=== PATIENT | male | born 1950 | race Two or more races ===

== ENCOUNTER 2020-01-18 17:41 | Inpatient (IN) | payer MEDICARE, MEDICAID ==
[~2020-01-18] VITALS: Ht 165.1 cm; Wt 101.6 kg
[2020-01-18] MEDS ORDERED: SODIUM CHLORIDE 0.9% 500 ML IV ONE (18:23)
[2020-01-18] MEDS ORDERED: PANTOPRAZOLE 80 MG in SODIUM CHLORIDE 0.9% 100 ML IV STA (18:23)
[2020-01-18] MEDS ORDERED: PANTOPRAZOLE SODIUM 40 MG/VIAL IV STA (18:23)
[2020-01-18 18:53] LABS: BASOPHILS % 0.2 % (0.0-2.0); EOSINOPHILS % 0.2 % (0.0-5.0); HEMATOCRIT. 31.5 % (42.0-52.0); HEMOGLOBIN. 10.8 g/dL (14.0-18.0); LYMPHOCYTES % 11.3 % (20.0-50.0); MEAN CORPUSCULAR HEMOGLOBIN 31.6 pg (28.0-32.0); MEAN CORPUSCULAR VOLUME 92.7 fL (80.0-94.0); MEAN PLATELET VOLUME 10.7 fl (7.4-10.4); MONOCYTES % 4.8 % (2.0-8.0); NEUTROPHILS % 83.5 % (40.0-76.0); PLATELET 124 x1000/uL (130-400); RED CELL DISTRIBUTION WIDTH 13.6 % (11.6-14.6)
[2020-01-18 18:58] LABS: CHLORIDE 99 mEq/L (98-107)
[2020-01-18 19:00] LABS: INR 1.1; PROTHROMBIN TIME 11.8 sec (9.6-11.0)
[2020-01-18 21:15] LABS: BASOPHILS % 0.2 % (0.0-2.0); EOSINOPHILS % 0.2 % (0.0-5.0); HEMATOCRIT. 27.5 % (42.0-52.0); HEMOGLOBIN. 9.3 g/dL (14.0-18.0); LYMPHOCYTES % 14.9 % (20.0-50.0); MEAN CORPUSCULAR HEMOGLOBIN 31.6 pg (28.0-32.0); MEAN CORPUSCULAR VOLUME 93.5 fL (80.0-94.0); MEAN PLATELET VOLUME 10.7 fl (7.4-10.4); MONOCYTES % 7.4 % (2.0-8.0); NEUTROPHILS % 77.3 % (40.0-76.0); PLATELET 92 x1000/uL (130-400); RED BLOOD CELL COUNT 2.94 mill/uL (4.7-6.1); RED CELL DISTRIBUTION WIDTH 13.6 % (11.6-14.6)
[2020-01-19] MEDS ORDERED: ACETAMINOPHEN 325MG TABLET PO PRN (08:45)
[2020-01-19] MEDS ORDERED: DEXTROSE 50% WATER 50ML SYRINGE IV PRN (08:45)
[2020-01-19] MEDS ORDERED: ONDANSETRON HCL 4MG/2ML INJ IV PRN (08:45)
[2020-01-19] MEDS: PANTOPRAZOLE SODIUM 40 MG/VIAL IV SCH ×2 (09:00→17:14)
[2020-01-19] MEDS: BLOOD SUGAR DIAGNOSTIC STRIP TEST SCH ×3 (11:44→19:51)
[2020-01-19] MEDS: INSULIN LISPRO 100 UNITS/ML SUBCUT SCH ×3 (12:00→21:00)
[2020-01-19 14:45] VITALS: BP 122/72
[2020-01-19 16:00] VITALS: BP 120/76
[2020-01-19] MEDS ORDERED: ATOR20TA65 PO (16:36)
[2020-01-19] MEDS ORDERED: PANT20TA3 MT (16:36)
[2020-01-19] MEDS ORDERED: NEPVIT MT (16:36)
[2020-01-19] MEDS ORDERED: MIDO10TA PO (16:36)
[2020-01-19] MEDS ORDERED: CINA30 PO (16:36)
[2020-01-19] MEDS ORDERED: SEVE800T8 PO (16:36)
[2020-01-19] MEDS ORDERED: IRBE150T51 PO (16:36)
[2020-01-19] MEDS ORDERED: NIFE-33 PO (16:36)
[2020-01-19] MEDS: DOCUSATE SODIUM 250MG CAPSULE PO SCH (17:14)
[2020-01-19 18:26] LABS: HEMATOCRIT 30.9 % (42.0-52.0); HEMOGLOBIN 10.6 g/dL (14.0-18.0)
[2020-01-19 18:40] LABS: TOTAL IRON BINDING CAPACITY 265 ug/dL (250-450)
[2020-01-19 20:00] VITALS: BP 100/80
[2020-01-20] VITALS (9 sets, daily range): BP systolic 89–120; BP diastolic 41–76
[2020-01-20 01:05] LABS: HEMATOCRIT 25.9 % (42.0-52.0); HEMOGLOBIN 8.9 g/dL (14.0-18.0)
[2020-01-20] MEDS: BLOOD SUGAR DIAGNOSTIC STRIP TEST SCH ×4 (06:34→20:32)
[2020-01-20] MEDS: INSULIN LISPRO 100 UNITS/ML SUBCUT SCH ×4 (06:50→20:38)
[2020-01-20] MEDS: PANTOPRAZOLE SODIUM 40 MG/VIAL IV SCH ×2 (08:13→17:50)
[2020-01-20] MEDS: DOCUSATE SODIUM 250MG CAPSULE PO SCH ×2 (08:14→17:50)
[2020-01-20 08:36] LABS: BASOPHILS % 0.5 % (0.0-2.0); HEMATOCRIT. 29.8 % (42.0-52.0); HEMOGLOBIN. 10.2 g/dL (14.0-18.0); LYMPHOCYTES % 31.2 % (20.0-50.0); MEAN CORPUSCULAR HEMOGLOBIN 31.9 pg (28.0-32.0); MEAN CORPUSCULAR VOLUME 93.2 fL (80.0-94.0); MEAN PLATELET VOLUME 10.5 fl (7.4-10.4); MONOCYTES % 5.9 % (2.0-8.0); NEUTROPHILS % 61.4 % (40.0-76.0); PLATELET 111 x1000/uL (130-400); RED CELL DISTRIBUTION WIDTH 13.6 % (11.6-14.6)
[2020-01-20] MEDS ORDERED: EPOETIN ALFA 10000UNITS/ML VIAL SUBCUT SCH (21:00)
[2020-01-21] VITALS (7 sets, daily range): BP systolic 94–129; BP diastolic 34–74
[2020-01-21] MEDS: BLOOD SUGAR DIAGNOSTIC STRIP TEST SCH ×2 (06:31→12:45)
[2020-01-21] MEDS: INSULIN LISPRO 100 UNITS/ML SUBCUT SCH ×2 (07:22→12:46)
[2020-01-21] MEDS: PANTOPRAZOLE SODIUM 40 MG/VIAL IV SCH (08:21)
[2020-01-21] MEDS: DOCUSATE SODIUM 250MG CAPSULE PO SCH (08:21)
== END 2020-01-21 15:43 | disposition home or self-care (01) | DRG 377 ==
LOC: ER 17:41 → MICUSO 20:35 → EDBEDREQ 20:42 → 6WST 01-19 15:17
PROVIDERS: ADMIT Internal Medicine; ATTEND Internal Medicine
PROC: 5A1D70Z Performance of Urinary Filtration, Intermittent, Less than 6 Hours Per Day (ICD-10-PCS; principal; 2020-01-20)
DX: K92.1 Melena (principal); N18.6 End stage renal disease; D62 Acute posthemorrhagic anemia; E44.1 Mild protein-calorie malnutrition; E87.2 Acidosis; I12.0 Hypertensive chronic kidney disease with stage 5 chronic kidney disease or end stage renal disease; R57.9 Shock, unspecified; E11.22 Type 2 diabetes mellitus with diabetic chronic kidney disease; E66.01 Morbid (severe) obesity due to excess calories; D63.8 Anemia in other chronic diseases classified elsewhere; Z99.2 Dependence on renal dialysis; Z71.3 Dietary counseling and surveillance; Z68.37 Body mass index [BMI] 37.0-37.9, adult
CPT/HCPCS: 36415; 71045; 80048; 80053; 82270; 82728; 82962; 83036; 83540; 83550; 83605; 85014; 85018; 85025; 86850; 86900; 93005; 99291; C9113; J7040; J7050

== ENCOUNTER 2020-01-30 00:32 | Inpatient (IN) | payer MEDICARE, MEDICAID ==
[~2020-01-30] VITALS: Ht 182.9 cm; Wt 108.9 kg
[~2020-01-30 00:32] MED LIST: ATOR20TA65 PO; CINA30 PO; IRBE150T51 PO; MIDO10TA PO; NEPVIT MT; PANT20TA3 MT; SEVE800T8 PO
[2020-01-30] MEDS ORDERED: ACETAMINOPHEN 325MG TABLET PO STA (00:44)
[2020-01-30] MEDS ORDERED: ONDANSETRON HCL 4MG/2ML INJ IV STA (00:44)
[2020-01-30] MEDS ORDERED: SODIUM CHLORIDE 0.9% 1,000 ML IV ONE ×2 (00:44→00:54)
[2020-01-30] MEDS ORDERED: AZITHROMYCIN 500 MG in DEXT 5% WATER 250 ML IV ONE (00:45)
[2020-01-30] MEDS ORDERED: CEFTRIAXONE 1 G PREMIX 50 ML IV ONE (00:45)
[2020-01-30 01:22] LABS: MEAN CORPUSCULAR VOLUME 93.7 fL (80.0-94.0); PLATELET 107 x1000/uL (130-400); RED BLOOD CELL COUNT 1.57 mill/uL (4.7-6.1); RED CELL DISTRIBUTION WIDTH 13.7 % (11.6-14.6)
[2020-01-30 01:25] LABS: HEMATOCRIT. 14.7 % (42.0-52.0); HEMOGLOBIN. 4.9 g/dL (14.0-18.0)
[2020-01-30 01:26] LABS: CHLORIDE 95 mEq/L (98-107)
[2020-01-30 01:35] LABS: INR 1.4; PROTHROMBIN TIME 14.2 sec (9.6-11.0)
[2020-01-30 01:58] LABS: PLATELET ESTIMATE NORMAL
[2020-01-30] MEDS ORDERED: NOREPINEPHRINE 4 MG in DEXT 5% WATER 250 ML IV STA (04:47)
[2020-01-30 04:53] LABS: HEMOGLOBIN 6.9 g/dL (14.0-18.0)
[2020-01-30 04:54] LABS: HEMATOCRIT 20.7 % (42.0-52.0)
[2020-01-30] MEDS ORDERED: NOREPINEPHRINE 4MG/250ML PMX 250 ML IV SCH (05:00)
[2020-01-30] MEDS ORDERED: ONDANSETRON HCL 4MG/2ML INJ IV PRN ×2 (08:30)
[2020-01-30] MEDS ORDERED: CEFTRIAXONE 1 G PREMIX 50 ML IV SCH (08:30)
[2020-01-30 08:53] LABS: HEMATOCRIT 26.8 % (42.0-52.0); HEMOGLOBIN 9.1 g/dL (14.0-18.0)
[2020-01-30] MEDS: METRONIDAZOLE 500 MG PREMIX 100 ML IV SCH ×2 (09:00→20:13)
[2020-01-30] MEDS: PANTOPRAZOLE SODIUM 40 MG/VIAL IV SCH ×2 (09:00→20:14)
[2020-01-30] MEDS: MIDODRINE HCL 5MG TABLET PO SCH ×3 (09:00→20:51)
[2020-01-30 12:28] LABS: HEMATOCRIT 25.4 % (42.0-52.0); HEMOGLOBIN 8.8 g/dL (14.0-18.0)
[2020-01-30 19:00] LABS: HEMATOCRIT 25.1 % (42.0-52.0); HEMOGLOBIN 8.6 g/dL (14.0-18.0)
[2020-01-30] MEDS ORDERED: IOHEXOL-300 100 ML BOTTLE ONE (23:07)
[2020-01-31] VITALS (48 sets, daily range): BP systolic 84–162; BP diastolic 44–89
[2020-01-31 00:19] LABS: HEMATOCRIT 24.3 % (42.0-52.0); HEMOGLOBIN 8.4 g/dL (14.0-18.0)
[2020-01-31] MEDS ORDERED: NIFE-33 PO (01:09)
[2020-01-31] MEDS: METRONIDAZOLE 500 MG PREMIX 100 ML IV SCH ×3 (01:30→21:03)
[2020-01-31] MEDS: CEFTRIAXONE 1,000 MG in DEXTROSE 5% WATER 50 ML IV SCH (01:30)
[2020-01-31] MEDS ORDERED: NOREPINEPHRINE 4 MG in DEXT 5% WATER 246 ML IV SCH (01:30)
[2020-01-31 05:51] LABS: HEMOGLOBIN. 7.6 g/dL (14.0-18.0); MEAN CORPUSCULAR HEMOGLOBIN 31.4 pg (28.0-32.0); MEAN CORPUSCULAR VOLUME 90.3 fL (80.0-94.0); MEAN PLATELET VOLUME 10.5 fl (7.4-10.4); PLATELET 75 x1000/uL (130-400); RED BLOOD CELL COUNT 2.43 mill/uL (4.7-6.1); RED CELL DISTRIBUTION WIDTH 14.7 % (11.6-14.6)
[2020-01-31] MEDS: PANTOPRAZOLE SODIUM 40 MG/VIAL IV SCH ×2 (08:51→21:03)
[2020-01-31] MEDS ORDERED: PNEUMOCOCCAL 23-VAL P-SAC VAC 0.5 ML IM ONE (12:00)
[2020-01-31 12:26] LABS: HEMOGLOBIN 7.1 g/dL (14.0-18.0)
[2020-01-31 13:09] LABS: HEMATOCRIT 20.4 % (42.0-52.0)
[2020-01-31 14:10] LABS: PLATELET ESTIMATE DECREASED
[2020-01-31] MEDS ORDERED: FENTANYL CITRATE/PF 50MCG/ML 2ML VIAL ONE (16:55)
[2020-01-31] MEDS ORDERED: MIDAZOLAM HCL 5 MG/5 ML VIAL ONE (16:55)
[2020-01-31] MEDS ORDERED: MIDAZOLAM HCL 5 MG/5 ML VIAL IV ONE (17:05)
[2020-01-31] MEDS ORDERED: FENTANYL CITRATE/PF 50MCG/ML 2ML VIAL IV ONE (17:06)
[2020-01-31 20:32] LABS: HEMATOCRIT 23.4 % (42.0-52.0)
[2020-02-01] VITALS (57 sets, daily range): BP systolic 87–163; BP diastolic 39–91
[2020-02-01] MEDS: CEFTRIAXONE 1,000 MG in DEXTROSE 5% WATER 50 ML IV SCH (00:23)
[2020-02-01 03:20] LABS: MEAN CORPUSCULAR HEMOGLOBIN 30.4 pg (28.0-32.0); MEAN CORPUSCULAR VOLUME 89.1 fL (80.0-94.0); MEAN PLATELET VOLUME 10.2 fl (7.4-10.4); PLATELET 57 x1000/uL (130-400); RED BLOOD CELL COUNT 2.24 mill/uL (4.7-6.1); RED CELL DISTRIBUTION WIDTH 14.6 % (11.6-14.6)
[2020-02-01 03:23] LABS: HEMATOCRIT. 19.9 % (42.0-52.0); HEMOGLOBIN. 6.8 g/dL (14.0-18.0)
[2020-02-01 03:26] LABS: CHLORIDE 98 mEq/L (98-107)
[2020-02-01 08:06] LABS: PLATELET ESTIMATE DECREASED
[2020-02-01 08:49] LABS: HEMATOCRIT 22.7 % (42.0-52.0); HEMOGLOBIN 7.8 g/dL (14.0-18.0)
[2020-02-01] MEDS: PANTOPRAZOLE SODIUM 40 MG/VIAL IV SCH ×2 (09:00→21:15)
[2020-02-01] MEDS: METRONIDAZOLE 500 MG PREMIX 100 ML IV SCH ×2 (09:00→21:14)
[2020-02-01 15:26] LABS: HEMATOCRIT 23.2 % (42.0-52.0); HEMOGLOBIN 8.1 g/dL (14.0-18.0)
[2020-02-01 15:32] LABS: INR 1.1; PROTHROMBIN TIME 11.3 sec (9.6-11.0)
[2020-02-01] MEDS ORDERED: MIDAZOLAM HCL 5 MG/5 ML VIAL ONE (15:47)
[2020-02-01] MEDS ORDERED: FENTANYL CITRATE/PF 50MCG/ML 2ML VIAL ONE (15:48)
[2020-02-01] MEDS ORDERED: MIDAZOLAM HCL 5 MG/5 ML VIAL IV PRN (16:21)
[2020-02-01] MEDS ORDERED: FENTANYL CITRATE/PF 50MCG/ML 2ML VIAL IV PRN (16:22)
[2020-02-01 22:41] LABS: HEMATOCRIT 21.6 % (42.0-52.0); HEMOGLOBIN 7.5 g/dL (14.0-18.0)
[2020-02-02] VITALS (19 sets, daily range): BP systolic 103–159; BP diastolic 56–95
[2020-02-02] MEDS: CEFTRIAXONE 1,000 MG in DEXTROSE 5% WATER 50 ML IV SCH (00:42)
[2020-02-02 00:54] LABS: HEMATOCRIT 22.5 % (42.0-52.0); HEMOGLOBIN 7.6 g/dL (14.0-18.0)
[2020-02-02 06:18] LABS: HEMATOCRIT. 21.1 % (42.0-52.0); HEMOGLOBIN. 7.4 g/dL (14.0-18.0); MEAN CORPUSCULAR HEMOGLOBIN 31.2 pg (28.0-32.0); MEAN CORPUSCULAR VOLUME 89.3 fL (80.0-94.0); MEAN PLATELET VOLUME 9.9 fl (7.4-10.4); PLATELET 58 x1000/uL (130-400); RED BLOOD CELL COUNT 2.37 mill/uL (4.7-6.1); RED CELL DISTRIBUTION WIDTH 14.2 % (11.6-14.6)
[2020-02-02] MEDS: METRONIDAZOLE 500 MG PREMIX 100 ML IV SCH ×2 (08:06→21:34)
[2020-02-02] MEDS: PANTOPRAZOLE SODIUM 40 MG/VIAL IV SCH ×2 (08:06→21:34)
[2020-02-02] MEDS: ACETAMINOPHEN 325MG TABLET PO PRN ×2 (12:04→19:02)
[2020-02-02 17:51] LABS: PLATELET ESTIMATE DECREASED
[2020-02-02] MEDS ORDERED: HYDROCODONE/ACETAMINOPHEN 5/325MG TABLET PO PRN (21:00)
[2020-02-03] VITALS (36 sets, daily range): BP systolic 92–156; BP diastolic 16–84
[2020-02-03] MEDS: ACETAMINOPHEN 325MG TABLET PO PRN (06:13)
[2020-02-03 07:03] LABS: BASOPHILS % 0.3 % (0.0-2.0); LYMPHOCYTES % 7.4 % (20.0-50.0); MEAN CORPUSCULAR HEMOGLOBIN 30.8 pg (28.0-32.0); MEAN CORPUSCULAR VOLUME 89.4 fL (80.0-94.0); MEAN PLATELET VOLUME 10.3 fl (7.4-10.4); MONOCYTES % 10.1 % (2.0-8.0); NEUTROPHILS % 82.2 % (40.0-76.0); PLATELET 54 x1000/uL (130-400); RED BLOOD CELL COUNT 1.65 mill/uL (4.7-6.1); RED CELL DISTRIBUTION WIDTH 14.4 % (11.6-14.6)
[2020-02-03 08:19] LABS: HEMOGLOBIN. 5.1 g/dL (14.0-18.0)
[2020-02-03 08:20] LABS: HEMATOCRIT. 14.7 % (42.0-52.0)
[2020-02-03] MEDS: FOLIC ACID/VITAMIN B COMP W-C TABLET PO SCH (09:00)
[2020-02-03] MEDS: PANTOPRAZOLE SODIUM 40 MG/VIAL IV SCH ×2 (10:50→22:45)
[2020-02-03] MEDS: METRONIDAZOLE 500 MG PREMIX 100 ML IV SCH ×2 (10:51→22:41)
[2020-02-03] MEDS: CEFEPIME 1,000 MG in DEXTROSE 5% WATER 50 ML IV SCH (10:51)
[2020-02-03] MEDS ORDERED: SODIUM CHLORIDE 0.9% 500 ML IV SCH (11:30)
[2020-02-03 12:56] LABS: HEMATOCRIT 11.5 % (42.0-52.0)
[2020-02-03] MEDS ORDERED: MIDAZOLAM HCL 5 MG/5 ML VIAL ONE (13:51)
[2020-02-03] MEDS ORDERED: FENTANYL CITRATE/PF 50MCG/ML 2ML VIAL ONE (13:52)
[2020-02-03] MEDS ORDERED: SODIUM BICARBONATE 4% (2.4MEQ) 5ML VIAL IV ONE (15:54)
[2020-02-03] MEDS ORDERED: LIDOCAINE HCL 1% 20ML VIAL (Pyxis) INJ ONE (15:55)
[2020-02-03] MEDS ORDERED: IOHEXOL-300 100 ML BOTTLE ONE ×2 (15:59→16:22)
[2020-02-03] MEDS ORDERED: IODIXANOL 320MG/ML 100 ML BOTTLE IV ONE (17:03)
[2020-02-03 20:16] LABS: HEMATOCRIT 17.7 % (42.0-52.0); HEMOGLOBIN 6.2 g/dL (14.0-18.0)
[2020-02-03] MEDS ORDERED: IOHEXOL-350 100 ML BOTTLE ONE (23:09)
[2020-02-04] VITALS (21 sets, daily range): BP systolic 106–167; BP diastolic 44–78
[2020-02-04 06:17] LABS: BASOPHILS % 0.5 % (0.0-2.0); EOSINOPHILS % 0.3 % (0.0-5.0); LYMPHOCYTES % 13.8 % (20.0-50.0); MEAN CORPUSCULAR HEMOGLOBIN 29.8 pg (28.0-32.0); MEAN CORPUSCULAR VOLUME 86.3 fL (80.0-94.0); MEAN PLATELET VOLUME 10.2 fl (7.4-10.4); NEUTROPHILS % 74.4 % (40.0-76.0); PLATELET 69 x1000/uL (130-400); RED BLOOD CELL COUNT 2.07 mill/uL (4.7-6.1); RED CELL DISTRIBUTION WIDTH 15.5 % (11.6-14.6)
[2020-02-04 06:50] LABS: HEMATOCRIT. 17.9 % (42.0-52.0); HEMOGLOBIN. 6.2 g/dL (14.0-18.0)
[2020-02-04] MEDS: CEFEPIME 1,000 MG in DEXTROSE 5% WATER 50 ML IV SCH (08:47)
[2020-02-04] MEDS: FOLIC ACID/VITAMIN B COMP W-C TABLET PO SCH (08:48)
[2020-02-04] MEDS: METRONIDAZOLE 500 MG PREMIX 100 ML IV SCH ×2 (08:48→21:44)
[2020-02-04] MEDS: PANTOPRAZOLE SODIUM 40 MG/VIAL IV SCH ×2 (08:49→21:44)
[2020-02-04 12:45] LABS: HEMATOCRIT 17.7 % (42.0-52.0); HEMOGLOBIN 6.1 g/dL (14.0-18.0)
[2020-02-04 19:05] LABS: HEMATOCRIT 26.3 % (42.0-52.0); HEMOGLOBIN 9.3 g/dL (14.0-18.0)
[2020-02-05] VITALS (12 sets, daily range): BP systolic 105–178; BP diastolic 50–107
[2020-02-05 01:33] LABS: HEMATOCRIT 24.2 % (42.0-52.0); HEMOGLOBIN 8.5 g/dL (14.0-18.0)
[2020-02-05 07:22] LABS: BASOPHILS % 0.5 % (0.0-2.0); EOSINOPHILS % 0.6 % (0.0-5.0); HEMATOCRIT. 23.7 % (42.0-52.0); HEMOGLOBIN. 8.2 g/dL (14.0-18.0); MEAN CORPUSCULAR HEMOGLOBIN 29.5 pg (28.0-32.0); MEAN CORPUSCULAR VOLUME 85.7 fL (80.0-94.0); MEAN PLATELET VOLUME 10.4 fl (7.4-10.4); NEUTROPHILS % 79.9 % (40.0-76.0); PLATELET 86 x1000/uL (130-400); RED BLOOD CELL COUNT 2.76 mill/uL (4.7-6.1); RED CELL DISTRIBUTION WIDTH 15.2 % (11.6-14.6)
[2020-02-05 07:23] LABS: INR 1.2; PROTHROMBIN TIME 12.2 sec (9.6-11.0)
[2020-02-05] MEDS: CEFEPIME 1,000 MG in DEXTROSE 5% WATER 50 ML IV SCH (08:03)
[2020-02-05] MEDS: FOLIC ACID/VITAMIN B COMP W-C TABLET PO SCH (08:03)
[2020-02-05] MEDS: METRONIDAZOLE 500 MG PREMIX 100 ML IV SCH ×2 (08:03→20:58)
[2020-02-05] MEDS: PANTOPRAZOLE SODIUM 40 MG/VIAL IV SCH ×2 (08:03→21:16)
[2020-02-05 19:56] LABS: HEMATOCRIT 23.5 % (42.0-52.0); HEMOGLOBIN 8.1 g/dL (14.0-18.0)
[2020-02-06] VITALS (12 sets, daily range): BP systolic 127–174; BP diastolic 62–87
[2020-02-06 01:57] LABS: HEMATOCRIT 22.1 % (42.0-52.0); HEMOGLOBIN 7.6 g/dL (14.0-18.0)
[2020-02-06 07:08] LABS: BASOPHILS % 0.8 % (0.0-2.0); EOSINOPHILS % 0.5 % (0.0-5.0); HEMATOCRIT. 21.1 % (42.0-52.0); HEMOGLOBIN. 7.3 g/dL (14.0-18.0); LYMPHOCYTES % 13.4 % (20.0-50.0); MEAN CORPUSCULAR HEMOGLOBIN 29.8 pg (28.0-32.0); MEAN CORPUSCULAR VOLUME 86.4 fL (80.0-94.0); MEAN PLATELET VOLUME 9.9 fl (7.4-10.4); MONOCYTES % 8.8 % (2.0-8.0); NEUTROPHILS % 76.5 % (40.0-76.0); PLATELET 95 x1000/uL (130-400); RED BLOOD CELL COUNT 2.44 mill/uL (4.7-6.1); RED CELL DISTRIBUTION WIDTH 14.9 % (11.6-14.6)
[2020-02-06] MEDS: FOLIC ACID/VITAMIN B COMP W-C TABLET PO SCH (08:11)
[2020-02-06] MEDS: PANTOPRAZOLE SODIUM 40 MG/VIAL IV SCH ×2 (08:11→20:01)
[2020-02-06] MEDS: CEFEPIME 1,000 MG in DEXTROSE 5% WATER 50 ML IV SCH (08:11)
[2020-02-06] MEDS: METRONIDAZOLE 500 MG PREMIX 100 ML IV SCH (08:12)
[2020-02-06 11:40] LABS: HEMOGLOBIN 7.1 g/dL (14.0-18.0)
[2020-02-06 12:26] LABS: HEMATOCRIT 20.8 % (42.0-52.0)
[2020-02-06 18:41] LABS: HEMATOCRIT 23.2 % (42.0-52.0); HEMOGLOBIN 7.9 g/dL (14.0-18.0)
[2020-02-06] MEDS: METRONIDAZOLE 500MG TABLET PO SCH (20:01)
[2020-02-06] MEDS: ATORVASTATIN CALCIUM 20MG TABLET PO SCH (20:42)
[2020-02-06] MEDS: EPOETIN ALFA 10000UNITS/ML VIAL SUBCUT SCH (20:43)
[2020-02-06] MEDS: CLONIDINE 0.1MG TABLET PO PRN (20:48)
[2020-02-06] MEDS: ACETAMINOPHEN 325MG TABLET PO PRN (23:52)
[2020-02-07] VITALS (25 sets, daily range): BP systolic 107–185; BP diastolic 57–80
[2020-02-07] MEDS: CLONIDINE 0.1MG TABLET PO PRN (03:09)
[2020-02-07 06:40] LABS: BASOPHILS % 0.5 % (0.0-2.0); EOSINOPHILS % 0.3 % (0.0-5.0); LYMPHOCYTES % 17.1 % (20.0-50.0); MEAN CORPUSCULAR HEMOGLOBIN 29.9 pg (28.0-32.0); MEAN CORPUSCULAR VOLUME 87.3 fL (80.0-94.0); MEAN PLATELET VOLUME 9.7 fl (7.4-10.4); MONOCYTES % 7.6 % (2.0-8.0); NEUTROPHILS % 74.5 % (40.0-76.0); PLATELET 92 x1000/uL (130-400); RED BLOOD CELL COUNT 2.24 mill/uL (4.7-6.1); RED CELL DISTRIBUTION WIDTH 14.7 % (11.6-14.6)
[2020-02-07 06:54] LABS: HEMATOCRIT. 19.6 % (42.0-52.0); HEMOGLOBIN. 6.7 g/dL (14.0-18.0)
[2020-02-07] MEDS: PANTOPRAZOLE SODIUM 40 MG/VIAL IV SCH ×2 (08:11→20:25)
[2020-02-07] MEDS: CEFEPIME 1,000 MG in DEXTROSE 5% WATER 50 ML IV SCH (08:11)
[2020-02-07] MEDS: METRONIDAZOLE 500MG TABLET PO SCH ×2 (08:11→20:25)
[2020-02-07] MEDS: FOLIC ACID/VITAMIN B COMP W-C TABLET PO SCH (08:11)
[2020-02-07] MEDS: NIFEDIPINE XL 60MG TAB PO SCH (08:12)
[2020-02-07] MEDS: ATORVASTATIN CALCIUM 20MG TABLET PO SCH (20:25)
[2020-02-07 21:22] LABS: HEMATOCRIT 29.6 % (42.0-52.0); HEMOGLOBIN 10.2 g/dL (14.0-18.0)
[2020-02-08] VITALS: BP 127/74
[2020-02-08] MEDS: ACETAMINOPHEN 325MG TABLET PO PRN ×2 (01:10→05:34)
[2020-02-08 04:00] VITALS: BP 121/55
[2020-02-08 07:06] LABS: BASOPHILS % 0.6 % (0.0-2.0); EOSINOPHILS % 0.3 % (0.0-5.0); HEMATOCRIT. 27.6 % (42.0-52.0); HEMOGLOBIN. 9.5 g/dL (14.0-18.0); LYMPHOCYTES % 15.6 % (20.0-50.0); MEAN CORPUSCULAR HEMOGLOBIN 29.9 pg (28.0-32.0); MEAN PLATELET VOLUME 9.7 fl (7.4-10.4); MONOCYTES % 6.3 % (2.0-8.0); NEUTROPHILS % 77.2 % (40.0-76.0); PLATELET 97 x1000/uL (130-400); RED BLOOD CELL COUNT 3.17 mill/uL (4.7-6.1); RED CELL DISTRIBUTION WIDTH 15.1 % (11.6-14.6)
[2020-02-08 08:00] VITALS: BP 115/59
[2020-02-08] MEDS: NIFEDIPINE XL 60MG TAB PO SCH (09:47)
[2020-02-08] MEDS: PANTOPRAZOLE SODIUM 40 MG/VIAL IV SCH ×2 (09:47→21:42)
[2020-02-08] MEDS: FOLIC ACID/VITAMIN B COMP W-C TABLET PO SCH (09:47)
[2020-02-08 12:00] VITALS: BP 115/62
[2020-02-08] MEDS ORDERED: CEFTRIAXONE 1 G PREMIX 50 ML IV SCH (15:45)
[2020-02-08 16:00] VITALS: BP 130/51
[2020-02-08] MEDS ORDERED: CEFTRIAXONE 1,000 MG in DEXTROSE 5% WATER 50 ML IV SCH (17:00)
[2020-02-08] MEDS: METRONIDAZOLE 250MG TABLET PO SCH ×2 (17:55→21:42)
[2020-02-08 20:00] VITALS: BP 121/66
[2020-02-08 20:43] LABS: HEMATOCRIT 29.3 % (42.0-52.0); HEMOGLOBIN 10.1 g/dL (14.0-18.0)
[2020-02-08] MEDS: ATORVASTATIN CALCIUM 20MG TABLET PO SCH (21:42)
[2020-02-08] MEDS: EPOETIN ALFA 10000UNITS/ML VIAL SUBCUT SCH (21:42)
[2020-02-09] VITALS: BP 147/73
[2020-02-09] MEDS: ACETAMINOPHEN 325MG TABLET PO PRN ×3 (01:42→12:52)
[2020-02-09 04:00] VITALS: BP 134/81
[2020-02-09] MEDS: METRONIDAZOLE 250MG TABLET PO SCH ×3 (05:44→21:06)
[2020-02-09 08:00] VITALS: BP 129/77
[2020-02-09 08:20] LABS: EOSINOPHILS % 0.1 % (0.0-5.0); HEMATOCRIT. 29.9 % (42.0-52.0); HEMOGLOBIN. 10.2 g/dL (14.0-18.0); LYMPHOCYTES % 13.2 % (20.0-50.0); MEAN CORPUSCULAR HEMOGLOBIN 29.8 pg (28.0-32.0); MEAN CORPUSCULAR VOLUME 87.6 fL (80.0-94.0); MEAN PLATELET VOLUME 9.7 fl (7.4-10.4); MONOCYTES % 7.3 % (2.0-8.0); NEUTROPHILS % 78.4 % (40.0-76.0); PLATELET 110 x1000/uL (130-400); RED BLOOD CELL COUNT 3.41 mill/uL (4.7-6.1); RED CELL DISTRIBUTION WIDTH 15.2 % (11.6-14.6)
[2020-02-09] MEDS: PANTOPRAZOLE SODIUM 40 MG/VIAL IV SCH ×2 (08:59→20:01)
[2020-02-09] MEDS: NIFEDIPINE XL 60MG TAB PO SCH (09:00)
[2020-02-09] MEDS: FOLIC ACID/VITAMIN B COMP W-C TABLET PO SCH (09:00)
[2020-02-09 12:00] VITALS: BP 111/63
[2020-02-09 16:00] VITALS: BP 93/62
[2020-02-09] MEDS: CEFEPIME 1,000 MG in DEXTROSE 5% WATER 50 ML IV SCH (18:39)
[2020-02-09] MEDS ORDERED: VANCOMYCIN 1 G PREMIX 200 ML IV SCH (19:00)
[2020-02-09 20:00] VITALS: BP 108/63
[2020-02-09] MEDS: ATORVASTATIN CALCIUM 20MG TABLET PO SCH (20:00)
[2020-02-10] VITALS (10 sets, daily range): BP systolic 89–127; BP diastolic 46–70
[2020-02-10] MEDS: METRONIDAZOLE 250MG TABLET PO SCH ×3 (05:51→21:02)
[2020-02-10] MEDS: PANTOPRAZOLE SODIUM 40 MG/VIAL IV SCH ×2 (09:29→21:01)
[2020-02-10] MEDS: FOLIC ACID/VITAMIN B COMP W-C TABLET PO SCH (09:29)
[2020-02-10] MEDS: NIFEDIPINE XL 60MG TAB PO SCH (09:30)
[2020-02-10] MEDS: ACETAMINOPHEN 325MG TABLET PO PRN ×2 (09:31→21:01)
[2020-02-10 12:37] LABS: BASOPHILS % 0.8 % (0.0-2.0); EOSINOPHILS % 0.1 % (0.0-5.0); HEMATOCRIT. 27.8 % (42.0-52.0); HEMOGLOBIN. 9.4 g/dL (14.0-18.0); LYMPHOCYTES % 11.1 % (20.0-50.0); MEAN CORPUSCULAR HEMOGLOBIN 29.7 pg (28.0-32.0); MEAN CORPUSCULAR VOLUME 88.1 fL (80.0-94.0); MEAN PLATELET VOLUME 9.7 fl (7.4-10.4); MONOCYTES % 9.8 % (2.0-8.0); NEUTROPHILS % 78.2 % (40.0-76.0); PLATELET 87 x1000/uL (130-400); RED BLOOD CELL COUNT 3.16 mill/uL (4.7-6.1); RED CELL DISTRIBUTION WIDTH 15.2 % (11.6-14.6)
[2020-02-10] MEDS: FLUCONAZOLE 400MG/200ML BAG 200 ML IV SCH (16:58)
[2020-02-10] MEDS: CEFEPIME 1,000 MG in DEXTROSE 5% WATER 50 ML IV SCH (20:37)
[2020-02-10] MEDS ORDERED: EPOETIN ALFA 10000UNITS/ML VIAL SUBCUT SCH (21:00)
[2020-02-10] MEDS: ATORVASTATIN CALCIUM 20MG TABLET PO SCH (21:01)
[2020-02-10 21:04] LABS: BG BASE EXCESS -0.1 mmol/L (-2.0-2.0); BG CARBOXYHEMOGLOBIN 0.3 % (0.5-1.5); BG FRACTION INSPIRED OXYGEN 40; BG HCO3 ACT 23.5 mmol/L (22.0-26.0); BG METHEMOGLOBIN 0.3 % (0.0-1.5); BG OXYGEN SATURATION 71.8 % (92.0-98.5); BG OXYHEMOGLOBIN 71.4 % (94.0-97.0); BG PCO2 34.3 mmHg (35.0-45.0); BG PH 7.453 (7.350-7.450); BG SAMPLE SITE RIGHT BRACHIAL; BG TOTAL HEMOGLOBIN 10.1 g/dL (12.0-18.0); BG VENT MODE NASAL CANNULA
[2020-02-10 23:01] LABS: BG BASE EXCESS -1.2 mmol/L (-2.0-2.0); BG CARBOXYHEMOGLOBIN 0.3 % (0.5-1.5); BG DEOXYHEMOGLOBIN 8.3 % (0.0-5.0); BG FRACTION INSPIRED OXYGEN 100; BG HCO3 ACT 22.6 mmol/L (22.0-26.0); BG METHEMOGLOBIN 0.2 % (0.0-1.5); BG OXYGEN SATURATION 91.7 % (92.0-98.5); BG OXYHEMOGLOBIN 91.2 % (94.0-97.0); BG PCO2 34.1 mmHg (35.0-45.0); BG PH 7.439 (7.350-7.450); BG PO2 61.8 mmHg (75.0-100.0); BG SAMPLE SITE RIGHT BRACHIAL; BG TOTAL HEMOGLOBIN 10.1 g/dL (12.0-18.0); BG VENT MODE MASK - NRB
[2020-02-11] VITALS (65 sets, daily range): BP systolic 82–139; BP diastolic 39–84
[2020-02-11] MEDS: METRONIDAZOLE 250MG TABLET PO SCH ×3 (05:27→21:15)
[2020-02-11 06:00] LABS: BASOPHILS % 0.5 % (0.0-2.0); EOSINOPHILS % 0.3 % (0.0-5.0); HEMATOCRIT. 30.8 % (42.0-52.0); HEMOGLOBIN. 10.4 g/dL (14.0-18.0); LYMPHOCYTES % 16.2 % (20.0-50.0); MEAN CORPUSCULAR HEMOGLOBIN 30.1 pg (28.0-32.0); MEAN CORPUSCULAR VOLUME 88.7 fL (80.0-94.0); MEAN PLATELET VOLUME 9.4 fl (7.4-10.4); MONOCYTES % 6.3 % (2.0-8.0); NEUTROPHILS % 76.7 % (40.0-76.0); RED BLOOD CELL COUNT 3.47 mill/uL (4.7-6.1); RED CELL DISTRIBUTION WIDTH 15.5 % (11.6-14.6)
[2020-02-11 06:14] LABS: CHLORIDE 103 mEq/L (98-107)
[2020-02-11 06:29] LABS: PLATELET 80 x1000/uL (130-400)
[2020-02-11 07:03] LABS: BG BASE EXCESS -2.1 mmol/L (-2.0-2.0); BG CARBOXYHEMOGLOBIN 0.3 % (0.5-1.5); BG DEOXYHEMOGLOBIN 19.8 % (0.0-5.0); BG FRACTION INSPIRED OXYGEN 100; BG HCO3 ACT 21.8 mmol/L (22.0-26.0); BG METHEMOGLOBIN 0.3 % (0.0-1.5); BG OXYGEN SATURATION 80.1 % (92.0-98.5); BG OXYHEMOGLOBIN 79.6 % (94.0-97.0); BG PCO2 34.2 mmHg (35.0-45.0); BG PH 7.422 (7.350-7.450); BG PO2 44.1 mmHg (75.0-100.0); BG SAMPLE SITE RIGHT BRACHIAL; BG TOTAL HEMOGLOBIN 11.1 g/dL (12.0-18.0); BG VENT MODE MASK - NRB
[2020-02-11] MEDS: NIFEDIPINE XL 60MG TAB PO SCH (09:00)
[2020-02-11] MEDS: FOLIC ACID/VITAMIN B COMP W-C TABLET PO SCH (09:00)
[2020-02-11] MEDS: PANTOPRAZOLE SODIUM 40 MG/VIAL IV SCH ×2 (10:32→21:09)
[2020-02-11] MEDS: ACETAMINOPHEN 325MG TABLET PO PRN ×2 (10:33→18:38)
[2020-02-11 10:35] LABS: BG BASE EXCESS -5.4 mmol/L (-2.0-2.0); BG BILEVEL POS AIRWAY PRESSURE 16/5; BG CARBOXYHEMOGLOBIN 0.3 % (0.5-1.5); BG DEOXYHEMOGLOBIN 13.2 % (0.0-5.0); BG FRACTION INSPIRED OXYGEN 100; BG METHEMOGLOBIN 0.1 % (0.0-1.5); BG OXYGEN SATURATION 86.7 % (92.0-98.5); BG OXYHEMOGLOBIN 86.4 % (94.0-97.0); BG PCO2 28.6 mmHg (35.0-45.0); BG PH 7.416 (7.350-7.450); BG PO2 50.2 mmHg (75.0-100.0); BG SAMPLE SITE RIGHT BRACHIAL; BG TOTAL HEMOGLOBIN 11.5 g/dL (12.0-18.0); BG VENT MODE MASK - BIPAP
[2020-02-11] MEDS: FLUCONAZOLE 400MG/200ML BAG 200 ML IV SCH (18:14)
[2020-02-11] MEDS ORDERED: DILTIAZEM HCL 5MG/ML 5ML VIAL IV NR ×2 (18:15→19:08)
[2020-02-11] MEDS: CEFEPIME 1,000 MG in DEXTROSE 5% WATER 50 ML IV SCH (20:29)
[2020-02-11] MEDS: PHENYLEPHRINE 40 MG in DEXT 5% WATER 246 ML IV PRN (20:54)
[2020-02-11] MEDS: ATORVASTATIN CALCIUM 20MG TABLET PO SCH (21:09)
[2020-02-12] VITALS (46 sets, daily range): BP systolic 66–129; BP diastolic 26–78
[2020-02-12] MEDS: ACETAMINOPHEN 325MG TABLET PO PRN (02:28)
[2020-02-12] MEDS ORDERED: DILTIAZEM HCL 5MG/ML 5ML VIAL IV SCH (03:30)
[2020-02-12 05:37] LABS: HEMOGLOBIN. 10.3 g/dL (14.0-18.0); MEAN CORPUSCULAR HEMOGLOBIN 30.1 pg (28.0-32.0); MEAN CORPUSCULAR VOLUME 87.5 fL (80.0-94.0); MEAN PLATELET VOLUME 10.5 fl (7.4-10.4); PLATELET 121 x1000/uL (130-400); RED BLOOD CELL COUNT 3.43 mill/uL (4.7-6.1); RED CELL DISTRIBUTION WIDTH 15.3 % (11.6-14.6)
[2020-02-12] MEDS: METRONIDAZOLE 250MG TABLET PO SCH (06:27)
[2020-02-12] MEDS: PHENYLEPHRINE 40 MG in DEXT 5% WATER 246 ML IV PRN (06:29)
[2020-02-12] MEDS ORDERED: DILTIAZEM HCL 125 MG in DEXT 5% WATER 100 ML IV PRN (08:30)
[2020-02-12 08:45] LABS: BG BASE EXCESS -0.8 mmol/L (-2.0-2.0); BG CARBOXYHEMOGLOBIN 0.3 % (0.5-1.5); BG DEOXYHEMOGLOBIN 18.2 % (0.0-5.0); BG FRACTION INSPIRED OXYGEN 100; BG HCO3 ACT 22.6 mmol/L (22.0-26.0); BG METHEMOGLOBIN 0.3 % (0.0-1.5); BG OXYGEN SATURATION 81.7 % (92.0-98.5); BG OXYHEMOGLOBIN 81.2 % (94.0-97.0); BG PH 7.453 (7.350-7.450); BG PO2 43.5 mmHg (75.0-100.0); BG SAMPLE SITE RIGHT RADIAL; BG TOTAL HEMOGLOBIN 11.5 g/dL (12.0-18.0); BG VENT MODE MASK - BIPAP
[2020-02-12] MEDS: FOLIC ACID/VITAMIN B COMP W-C TABLET PO SCH (09:00)
[2020-02-12] MEDS: PANTOPRAZOLE SODIUM 40 MG/VIAL IV SCH (09:51)
[2020-02-12] MEDS ORDERED: PHENYLEPHRINE 80 MG in DEXT 5% WATER 492 ML IV PRN (10:00)
[2020-02-12 10:07] LABS: PLATELET ESTIMATE SLIGHTLY DECREASED
[2020-02-12 11:42] LABS: BG BASE EXCESS -0.6 mmol/L (-2.0-2.0); BG BILEVEL POS AIRWAY PRESSURE 20/7; BG CARBOXYHEMOGLOBIN 0.3 % (0.5-1.5); BG DEOXYHEMOGLOBIN 32.3 % (0.0-5.0); BG FRACTION INSPIRED OXYGEN 100; BG HCO3 ACT 22.5 mmol/L (22.0-26.0); BG METHEMOGLOBIN 0.1 % (0.0-1.5); BG OXYGEN SATURATION 67.6 % (92.0-98.5); BG OXYHEMOGLOBIN 67.3 % (94.0-97.0); BG PCO2 32.1 mmHg (35.0-45.0); BG PH 7.464 (7.350-7.450); BG PO2 38.3 mmHg (75.0-100.0); BG SAMPLE SITE RIGHT RADIAL; BG TOTAL HEMOGLOBIN 11.4 g/dL (12.0-18.0); BG VENT MODE MASK - BIPAP; BG VENT RATE 20 set
[2020-02-12] MEDS ORDERED: LIDOCAINE HCL 1% 20ML VIAL (Pyxis) INJ ONE (11:55)
[2020-02-12] MEDS ORDERED: PROPOFOL 10MG/ML 100ML 100 ML IV PRN (12:25)
[2020-02-12] MEDS ORDERED: SODIUM BICARBONATE 8.4% 1 MEQ/ML 50ML SYR IV ONE ×2 (12:46→12:51)
[2020-02-13 10:06] LABS: FACTOR VIII ACTIVITY 132 % (56-140); VON WILLEBRAND FACTOR ANTIGEN 277 % (50-200)
== END 2020-02-12 12:45 | disposition expired | DRG 871 ==
LOC: ER 00:32 → MICUSO 01:40 → CVICU 01-31 00:04 → 5EST 02-01 23:10 → 8WST 02-07 19:05 → MICUNO 02-10 22:15 → MICUSO 02-11 07:53
PROVIDERS: ADMIT Internal Medicine; ATTEND Internal Medicine
PROC: 30233N1 Transfusion of Nonautologous Red Blood Cells into Peripheral Vein, Percutaneous Approach (ICD-10-PCS; 2020-01-30)
PROC: 5A1D70Z Performance of Urinary Filtration, Intermittent, Less than 6 Hours Per Day (ICD-10-PCS; 2020-01-30)
PROC: 0DJ08ZZ Inspection of Upper Intestinal Tract, Via Natural or Artificial Opening Endoscopic (ICD-10-PCS; 2020-01-31)
PROC: 5A1D70Z Performance of Urinary Filtration, Intermittent, Less than 6 Hours Per Day (ICD-10-PCS; 2020-01-31)
PROC: 0DH68YZ Insertion of Other Device into Stomach, Via Natural or Artificial Opening Endoscopic (ICD-10-PCS; 2020-02-01)
PROC: 5A1D70Z Performance of Urinary Filtration, Intermittent, Less than 6 Hours Per Day (ICD-10-PCS; 2020-02-02)
PROC: B31N1ZZ Fluoroscopy of Other Upper Arteries using Low Osmolar Contrast (ICD-10-PCS; 2020-02-03)
PROC: 5A1D70Z Performance of Urinary Filtration, Intermittent, Less than 6 Hours Per Day (ICD-10-PCS; 2020-02-06)
PROC: 5A1D70Z Performance of Urinary Filtration, Intermittent, Less than 6 Hours Per Day (ICD-10-PCS; 2020-02-07)
PROC: 5A1D70Z Performance of Urinary Filtration, Intermittent, Less than 6 Hours Per Day (ICD-10-PCS; 2020-02-08)
PROC: 5A1D70Z Performance of Urinary Filtration, Intermittent, Less than 6 Hours Per Day (ICD-10-PCS; 2020-02-09)
PROC: 5A1D70Z Performance of Urinary Filtration, Intermittent, Less than 6 Hours Per Day (ICD-10-PCS; 2020-02-10)
PROC: 5A1D70Z Performance of Urinary Filtration, Intermittent, Less than 6 Hours Per Day (ICD-10-PCS; 2020-02-11)
PROC: 5A09457 Assistance with Respiratory Ventilation, 24-96 Consecutive Hours, Continuous Positive Airway Pressure (ICD-10-PCS; 2020-02-11)
PROC: 0BH17EZ Insertion of Endotracheal Airway into Trachea, Via Natural or Artificial Opening (ICD-10-PCS; principal; 2020-02-12)
PROC: 02HV33Z Insertion of Infusion Device into Superior Vena Cava, Percutaneous Approach (ICD-10-PCS; 2020-02-12)
PROC: B548ZZA Ultrasonography of Superior Vena Cava, Guidance (ICD-10-PCS; 2020-02-12)
PROC: 5A1935Z Respiratory Ventilation, Less than 24 Consecutive Hours (ICD-10-PCS; 2020-02-12)
DX: A41.9 Sepsis, unspecified organism (principal); N18.6 End stage renal disease; R65.21 Severe sepsis with septic shock; K31.82 Dieulafoy lesion (hemorrhagic) of stomach and duodenum; J18.9 Pneumonia, unspecified organism; J96.01 Acute respiratory failure with hypoxia; I50.33 Acute on chronic diastolic (congestive) heart failure; U07.1 COVID-19; E46 Unspecified protein-calorie malnutrition; D62 Acute posthemorrhagic anemia; E87.1 Hypo-osmolality and hyponatremia; E87.2 Acidosis; D61.818 Other pancytopenia; I13.2 Hypertensive heart and chronic kidney disease with heart failure and with stage 5 chronic kidney disease, or end stage renal disease; E66.01 Morbid (severe) obesity due to excess calories; E87.5 Hyperkalemia; I45.10 Unspecified right bundle-branch block; N40.0 Benign prostatic hyperplasia without lower urinary tract symptoms; N30.90 Cystitis, unspecified without hematuria; K62.89 Other specified diseases of anus and rectum; E78.00 Pure hypercholesterolemia, unspecified; R57.8 Other shock; R79.89 Other specified abnormal findings of blood chemistry; K40.20 Bilateral inguinal hernia, without obstruction or gangrene, not specified as recurrent; E11.22 Type 2 diabetes mellitus with diabetic chronic kidney disease; I35.0 Nonrheumatic aortic (valve) stenosis; I25.10 Atherosclerotic heart disease of native coronary artery without angina pectoris; K55.20 Angiodysplasia of colon without hemorrhage; K57.90 Diverticulosis of intestine, part unspecified, without perforation or abscess without bleeding; I48.0 Paroxysmal atrial fibrillation; K44.9 Diaphragmatic hernia without obstruction or gangrene; Z99.2 Dependence on renal dialysis; Z79.899 Other long term (current) drug therapy; Z90.5 Acquired absence of kidney; Z68.32 Body mass index [BMI] 32.0-32.9, adult; Z95.2 Presence of prosthetic heart valve
CPT/HCPCS: 36415; 36600; 71045; 74174; 74177; 75726; 75774; 76937; 80048; 80053; 80076; 82270; 82375; 82550; 82728; 82805; 82962; 83605; 84145; 84484; 85014; 85018; 85025; 85240; 85246; 85379; 85613; 85732; 86038; 86803; 86850; 86900; 86920; 87493; 87635; 93005; 93306; 93970; 94660; 96365; 97162; 97164; 97166; 97530; 97535; 99291; C1725; C1730; C1757; C1766; C1887; C9113; J0456; J0692; J0696; J0885; J1450; J1644; J2250; J2370; J2405; J2704; J3010; J3370; J3490; J7030; J7060; P9016; Q9967; C9803-CS; U0003-CS